=== PATIENT | male | born 1965 | race Caucasian/White ===

== ENCOUNTER 2018-11-22 10:54 | Emergency (ER) | payer MEDICAID ==
[~2018-11-22] VITALS: Ht 172.7 cm; Wt 90.9 kg
[2018-11-22 11:03] VITALS: Ht 172.7 cm; Wt 90.9 kg
[2018-11-22] MEDS ORDERED: ULTRAM50 MG PO (15:07)
[2018-11-22 18:04] VITALS: BP 156/98
== END 2018-11-22 15:40 | disposition home or self-care (01) ==
LOC: D.ER 10:54
DX: L02.415 Cutaneous abscess of right lower limb (principal); L85.8 Other specified epidermal thickening; F17.200 Nicotine dependence, unspecified, uncomplicated

== ENCOUNTER 2018-12-02 11:48 | Emergency (ER) | payer MEDICAID ==
[~2018-12-02] VITALS: Ht 172.7 cm; Wt 90.9 kg
[~2018-12-02 11:48] MED LIST: ULTRAM50 MG PO
[2018-12-02 12:06] VITALS: Ht 172.7 cm; Wt 90.9 kg
[2018-12-02 14:26] VITALS: BP 142/88
== END 2018-12-02 14:27 | disposition home or self-care (01) ==
LOC: D.ER 11:48
DX: Z48.02 Encounter for removal of sutures (principal)